=== PATIENT | female | born 1945 | race African-American/Black ===

== ENCOUNTER 2024-05-01 09:05 | Day surgery (SDC) | payer OTHER ==
[2024-04-24 16:07] VITALS: BMI 40.3
[2024-05-01] MEDS ORDERED: TETRACAINE 0.5% OPHTH SOLN 2 ML BOTTLE ONE (09:42)
[2024-05-01] MEDS ORDERED: BSS (NA/CA/MG/K) BALANCED SALT SOLUTION OPHTH SOLN 15 ML BOTTLE ONE (09:42)
[2024-05-01] MEDS ORDERED: CARBACHOL 0.01% INTRA-OCULAR 1.5 ML VIAL ONE (09:42)
[2024-05-01] MEDS ORDERED: NEO/POLYMYX B SULF/DEXAMETH OPHTHALMIC 5ML BOTTLE ONE (09:42)
[2024-05-01] MEDS ORDERED: LIDOCAINE 1% P/F 10 MG/ML VIAL ONE (09:42)
[2024-05-01 09:51] VITALS: TEMP 97.3
[2024-05-01] MEDS: CIPROFLOXACIN 0.3% EYE DROPS 5 ML BOTTLE ONE (10:00)
[2024-05-01] MEDS: TROPICAMIDE 1% OPHTH SOLN 15 ML BOTTLE ONE (10:00)
[2024-05-01] MEDS: CYCLOPENTOLATE 2% OPHTH SOLN 2 ML BOTTLE ONE (10:00)
[2024-05-01] MEDS: PHENYLEPHRINE 2.5% OPTHALMIC DROP 2ML BOTTLE ONE (10:00)
[2024-05-01] MEDS ORDERED: ONDANSETRON 4 MG/2 ML VIAL ONE (11:34)
[2024-05-01] MEDS ORDERED: MIDAZOLAM HCL 2 MG/2 ML SINGLE DOSE VIAL ONE (11:34)
[2024-05-01 12:47] VITALS: RESP 18
[2024-05-01 12:49] VITALS: BP 136/61; PULSE 59
== END 2024-05-01 13:40 | disposition home or self-care (01) ==
LOC: FASU 09:05
PROVIDERS: ATTEND Ophthalmology
PROC: 08RK3JZ Replacement of Left Lens with Synthetic Substitute, Percutaneous Approach (ICD-10-PCS; principal; 2024-05-01 11:56)
DX: H26.8 Other specified cataract (principal)
CPT/HCPCS: 66984; V2632

== ENCOUNTER 2024-06-19 08:32 | Day surgery (SDC) | payer OTHER ==
[2024-06-14 15:20] VITALS: BMI 40.3
[2024-06-19] MEDS ORDERED: MIDAZOLAM HCL 2 MG/2 ML SINGLE DOSE VIAL ONE (08:56)
[2024-06-19] MEDS: PHENYLEPHRINE 2.5% OPTHALMIC DROP 2ML BOTTLE ONE (09:10)
[2024-06-19] MEDS: CYCLOPENTOLATE 2% OPHTH SOLN 2 ML BOTTLE ONE (09:10)
[2024-06-19] MEDS: TROPICAMIDE 1% OPHTH SOLN 15 ML BOTTLE ONE (09:10)
[2024-06-19] MEDS: CIPROFLOXACIN 0.3% EYE DROPS 5 ML BOTTLE ONE (09:10)
[2024-06-19] MEDS ORDERED: CARBACHOL 0.01% INTRA-OCULAR 1.5 ML VIAL ONE (09:21)
[2024-06-19] MEDS ORDERED: LIDOCAINE 1% P/F 10 MG/ML VIAL ONE (09:21)
[2024-06-19] MEDS ORDERED: BSS (NA/CA/MG/K) BALANCED SALT SOLUTION OPHTH SOLN 15 ML BOTTLE ONE (09:21)
[2024-06-19] MEDS ORDERED: NEO/POLYMYX B SULF/DEXAMETH OPHTHALMIC 5ML BOTTLE ONE (09:21)
[2024-06-19] MEDS ORDERED: TETRACAINE 0.5% OPHTH SOLN 2 ML BOTTLE ONE (09:21)
[2024-06-19 11:02] VITALS: PULSE 70; RESP 16; TEMP 97.8
[2024-06-19 11:28] VITALS: BP 159/76
== END 2024-06-19 11:47 | disposition home or self-care (01) ==
LOC: FASU 08:32
PROVIDERS: ATTEND Ophthalmology
PROC: 08RJ3JZ Replacement of Right Lens with Synthetic Substitute, Percutaneous Approach (ICD-10-PCS; principal; 2024-06-19 10:30)
DX: H26.8 Other specified cataract (principal)
CPT/HCPCS: 66984; V2632